=== PATIENT | female | born 1935 ===

== ENCOUNTER 2021-06-05 12:04 | Emergency (ER) | payer OTHER ==
[~2021-06-05] VITALS: Ht 160 cm; Wt 62.1 kg
[~2021-06-05 12:04] MED LIST: HYZAAR 100-121 UDTAB PO
[2021-06-10] MEDS ORDERED: FORTAMET500 MG PO (10:30)
== END 2021-06-05 19:41 | disposition home or self-care (01) ==
LOC: ER 12:04 → EDBD 14:32 → ER 14:32
DX: R53.1 Weakness (principal); I10 Essential (primary) hypertension; Z11.52 Encounter for screening for COVID-19

== ENCOUNTER → 2021-06-10 | Emergency (ER) | payer OTHER ==
[~2021-06-10] VITALS: Ht 157.5 cm; Wt 61.2 kg
[~2021-06-10] MED LIST changes: +FORTAMET500 MG PO
== END | disposition home or self-care (01) ==
LOC: ER 09:54
DX: M62.838 Other muscle spasm (principal)

== ENCOUNTER 2021-08-01 13:13 | Emergency (ER) | payer OTHER ==
[~2021-08-01] VITALS: Ht 165.1 cm; Wt 64.4 kg
[2021-08-01] MEDS ORDERED: DICLOFENAC POTA50 MG PO (15:06)
[2021-08-01] MEDS ORDERED: GABAPENTIN300 M2 PO (15:06)
[2021-08-01] MEDS ORDERED: VALACYCLOVIR1000 MG PO (15:06)
[2021-08-01] MEDS ORDERED: ZOVIRAX30 GM TOP (15:06)
== END 2021-08-01 15:32 | disposition home or self-care (01) ==
LOC: ER 13:13
DX: B02.9 Zoster without complications (principal)